=== PATIENT | female | born 1940 | race Caucasian/White ===

== ENCOUNTER 2018-08-08 13:38 | Emergency (ER) | payer MEDICARE ==
[~2018-08-08] VITALS: Ht 165.1 cm; Wt 49.9 kg
[2018-08-08] MEDS ORDERED: ZOLP5 (14:18)
[2018-08-08] MEDS ORDERED: FLUT1DIS5 INH (14:18)
[2018-08-08] MEDS ORDERED: XARELTO15 MG PO (15:30)
== END 2018-08-08 15:39 | disposition home or self-care (01) ==
LOC: ER 13:38
DX: I82.4Z2 Acute embolism and thrombosis of unspecified deep veins of left distal lower extremity (principal); Z79.899 Other long term (current) drug therapy
CPT/HCPCS: 93971; 99284-25